=== PATIENT | male | born 1985 | race Caucasian/White ===

== ENCOUNTER 2023-04-15 08:34 | Outpatient (CLI) | payer BC, SELFPAY | END 2023-04-15 08:35 | disposition home or self-care (01) | PROVIDERS: PCP Family Medicine; Visit Provider Family Medicine | DX: Z13.1 Encounter for screening for diabetes mellitus (principal); Z13.220 Encounter for screening for lipoid disorders | CPT/HCPCS: 80048; 80061 ==

== ENCOUNTER 2024-05-18 14:09 | Outpatient (CLI) | payer BC, SELFPAY | END 2024-05-18 14:10 | disposition home or self-care (01) | PROVIDERS: PCP Family Medicine; Visit Provider Family Medicine | DX: I10 Essential (primary) hypertension (principal); Z13.220 Encounter for screening for lipoid disorders | CPT/HCPCS: 80048; 80061 ==